=== PATIENT | male | born 1990 | race Caucasian/White ===

== ENCOUNTER → 2017-10-11 | Outpatient (CLI) | payer OTHER ==
--- NOTE | 2017-10-11 11:12 | Diagnostic Imaging Report ---
INDICATION: Left-sided rib pain. TIME OF EXAM: 11:00 a.m. EXAMINATION: Multiple views of the left ribs were obtained. FINDINGS: There is a probable nondisplaced fracture involving the left anterolateral seventh rib. No displaced rib fracture is seen. No parenchymal contusion, effusion or pneumothorax is seen. IMPRESSION: Findings suggestive of nondisplaced left anterior seventh rib fracture. Report given to Denisse Irwin APRN, at 11:11 a.m. 10/11/2017/preeti Dictated by: Dictated on workstation # [id number]
== END ==
LOC: RAD 10:24
PROVIDERS: ATTEND Nurse Practitioner Family
DX: R07.81 Pleurodynia (principal)
CPT/HCPCS: 71101